=== PATIENT | female | born 1945 ===

== ENCOUNTER 2018-09-19 08:25 | Outpatient (CLI) | payer OTHER ==
[~2018-09-19] VITALS: Ht 152.4 cm; Wt 59.0 kg
== END 2018-09-19 08:40 | disposition home or self-care (01) ==
LOC: OFIC 805 08:25
DX: H93.12 Tinnitus, left ear (principal); R42 Dizziness and giddiness; M26.613 Adhesions and ankylosis of bilateral temporomandibular joint; H90.42 Sensorineural hearing loss, unilateral, left ear, with unrestricted hearing on the contralateral side